=== PATIENT | male | born 1995 | race Caucasian/White ===

== ENCOUNTER 2022-05-08 17:17 | Emergency (ER) | payer OTHER ==
[~2022-05-08] VITALS: Ht 188 cm; Wt 90.7 kg
[2022-05-08] MEDS ORDERED: LIDOCAINE HCL 2% 20 ML VIAL ONE (18:32)
[2022-05-08] MEDS ORDERED: LIDOCAINE HCL 1% 20 ML VIAL IJ ONE (18:45)
[2022-05-08] MEDS ORDERED: IBUP-1955 PO (19:28)
[2022-05-08] MEDS ORDERED: SULF1TAB48 PO (19:28)
[2022-05-08] MEDS ORDERED: CEPH500C2 PO (19:28)
--- NOTE | 2022-05-08 19:32 | NUR ---
Patient discharged to home in stable condition. Written and verbal after care instructions given. Patient verbalizes understanding of instructions. Stressed follow up or return to ER for worsening s/s. Patient ambulated out of the ER with steady gait. All belongings with patient.
[2022-05-08 19:33] VITALS: BP 145/87
== END 2022-05-08 19:35 | disposition home or self-care (01) ==
LOC: ER 17:19
DX: L02.212 Cutaneous abscess of back [any part, except buttock and flank] (principal)
CPT/HCPCS: 99283; 10060; J3490; A4663

== ENCOUNTER 2022-05-10 15:01 | Emergency (ER) | payer OTHER ==
[~2022-05-10] VITALS: Ht 182.9 cm; Wt 90.7 kg
[~2022-05-10 15:01] MED LIST: CEPH500C2 PO; IBUP-1955 PO; SULF1TAB48 PO
--- NOTE | 2022-05-10 15:28 | NUR ---
Patient discharged to home in stable condition. Written and verbal after care instructions given. Patient verbalizes understanding of instructions. Stressed follow up or return to ER for worsening s/s.
== END 2022-05-10 15:28 | disposition home or self-care (01) ==
LOC: ER 15:01
DX: L02.212 Cutaneous abscess of back [any part, except buttock and flank] (principal); Z79.1 Long term (current) use of non-steroidal anti-inflammatories (NSAID); Z79.899 Other long term (current) drug therapy
CPT/HCPCS: A4663